=== PATIENT | male | born 1960 | race Caucasian/White ===

== ENCOUNTER 2019-05-22 00:32 | Emergency (ER) | payer MEDICAID ==
[~2019-05-22] VITALS: Ht 188 cm; Wt 87.5 kg
[~2019-05-22 00:32] MED LIST: ARIP1TAB7 PO; BUPR-81 PO; HYDR-3682 PO; PAR20T PO; QUET100T38 PO; TRAZ100T2 PO
[2019-05-22 02:05] LABS: Basophils # (auto) 0 uL; Eosinophils # (auto) 0.1 uL; Lymphocytes # (auto) 1.3 uL; Monocytes # (auto) 0.3 uL; Neutrophils # (auto) 2.2 uL
[2019-05-22 02:07] LABS: Basophils % (auto) 0.6 % (0.0-2.0); Eosinophils % (auto) 3.4 % (0.0-7.0); Hematocrit 37.1 % (41.0-53.0); Lymphocytes % (auto) 33.8 % (10.0-50.0); Mean Corpuscular Hemoglobin 23.9 pg (28.0-32.0); Mean Corpuscular Hgb Conc. 32.5 g/dL (32.0-36.0); Mean Corpuscular Volume 73.7 fL (80.0-100.0); Monocytes % (auto) 8.1 % (0.0-12.0); Neutrophils % (auto) 54.1 % (37.0-80.0); Nucleated Red Blood Cells % 0.1 %; Platelet Count (auto) 199 10^3/uL (140-450); Red Blood Cells 5.03 10^6/uL (4.5-5.90); Red Cell Distribution Width 16.9 % (11.8-14.3)
[2019-05-22 02:42] LABS: Albumin 3.6 g/dL (3.4-5.0); Calcium 7.9 mg/dL (8.5-10.1); Potassium 3.5 mmol/L (3.5-5.1)
[2019-05-22 02:43] LABS: Urine Bacteria FEW /hpf (None Seen); Urine Blood Negative /uL (Negative); Urine Mucus FEW (None Seen); Urine Specific Gravity 1.027 (1.001-1.035); Urine WBC 1 /hpf (0 - 3)
[2019-05-22 02:45] LABS: BUN/Creatinine Ratio 19.6
[2019-05-22 02:47] LABS: Salicylate < 1.7 mg/dL (2.8-20.0)
[2019-05-22 02:48] LABS: Acetaminophen < 2.0 ug/mL (10-30)
[2019-05-22 02:50] LABS: Bilirubin, Total 0.4 mg/dL (0.2-1.0); Total Protein 7.8 g/dL (6.4-8.2)
[2019-05-22 02:51] LABS: Alcohol, Urine < 3.0 mg/dL (0-5); Amphetamine Screen, Urine NEGATIVE (NEGATIVE); Barbiturate Scree,Urine NEGATIVE (NEGATIVE); Benzodiazephine Screen, Urine NEGATIVE (NEGATIVE); Cannabinoid Screen, Urine NEGATIVE (NEGATIVE); Cocaine Screen, Urine NEGATIVE (NEGATIVE); Opiate Scree,Urine NEGATIVE (NEGATIVE); Phencyclidine Screen, Urine NEGATIVE (NEGATIVE)
[2019-05-22] MEDS ORDERED: hydrOXYzine 25 MG TAB or CAP PO PRN (06:00)
[2019-05-22] MEDS ORDERED: ARIPIPRAZOLE 10 MG PO SCH (10:00)
[2019-05-22] MEDS ORDERED: buPROPion HCL 100 MG TAB PO SCH (10:00)
[2019-05-22 13:05] VITALS: BP 99/49
[2019-05-22] MEDS ORDERED: traZODone HCL 50 MG TAB PO SCH (22:00)
[2019-05-22] MEDS ORDERED: QUEtiapine FUMARATE 100 MG TAB PO SCH (22:00)
[2019-05-22] MEDS ORDERED: PARoxetine 20 MG TAB PO SCH (22:00)
== END 2019-05-22 11:36 | disposition still patient (30) ==
LOC: ER 00:40
DX: F32.9 Major depressive disorder, single episode, unspecified (principal); R45.851 Suicidal ideations; F41.9 Anxiety disorder, unspecified
CPT/HCPCS: 36415; 80053; 80307; 80329; 81001; 85025

== ENCOUNTER 2021-05-23 13:25 | Emergency (ER) | payer MEDICAID ==
[~2021-05-23] VITALS: Ht 188 cm; Wt 99.8 kg
[~2021-05-23 13:25] MED LIST changes: -BUPR-81 PO; +BUPR150T23 PO; -TRAZ100T2 PO; +TRAZ100T3 PO
[2021-05-23] MEDS ORDERED: ASPirin 81 mg TAB PO ONE (14:00)
[2021-05-23 14:40] LABS: Basophils # (auto) 0.1 10 ^3/uL (0-0.2); Basophils % (auto) 1.4 % (0.0-2.0); Eosinophils # (auto) 0.1 10 ^3/uL (0-0.8); Eosinophils % (auto) 1.6 % (0.0-7.0); Hematocrit 40.9 % (41.0-53.0); Lymphocytes # (auto) 1.3 10 ^3/uL (0.4-5.4); Lymphocytes % (auto) 30.9 % (10.0-50.0); Mean Corpuscular Hemoglobin 28.6 pg (28.0-32.0); Mean Corpuscular Hgb Conc. 34.1 g/dL (32.0-36.0); Mean Corpuscular Volume 83.8 fL (80.0-100.0); Monocytes # (auto) 0.6 10 ^3/uL (0-1.3); Monocytes % (auto) 13.2 % (0.0-12.0); Neutrophils # (auto) 2.2 10 ^3/uL (1.6-8.6); Neutrophils % (auto) 52.9 % (37.0-80.0); Nucleated Red Blood Cells % 0.2 %; Red Blood Cells 4.88 10^6/uL (4.5-5.90); Red Cell Distribution Width 17.2 % (11.8-14.3); White Blood Cell 4.2 10^3/uL (4.4-10.8)
[2021-05-23 15:00] LABS: Albumin 3.6 g/dL (3.4-5.0); Calcium 10.8 mg/dL (8.5-10.1); Magnesium 2.8 mg/dL (1.6-2.6); Potassium 3.3 mmol/L (3.5-5.1)
[2021-05-23 15:05] LABS: BUN/Creatinine Ratio 13.4; Bilirubin, Total 0.6 mg/dL (0.2-1.0); Total Protein 7.9 g/dL (6.4-8.2)
[2021-05-23 16:55] LABS: Urine Bacteria FEW /hpf (None Seen); Urine Blood Negative /uL (Negative); Urine Mucus FEW (None Seen); Urine Specific Gravity 1.014 (1.001-1.035); Urine WBC 1 /hpf (0 - 3)
[2021-05-23 18:05] VITALS: BP 124/60
== END 2021-05-23 16:59 | disposition home or self-care (01) ==
LOC: ER 13:25
DX: R07.89 Other chest pain (principal); E78.5 Hyperlipidemia, unspecified; Z86.2 Personal history of diseases of the blood and blood-forming organs and certain disorders involving the immune mechanism; Z86.73 Personal history of transient ischemic attack (TIA), and cerebral infarction without residual deficits; Z79.899 Other long term (current) drug therapy
CPT/HCPCS: 36415; 71045; 80053; 81001; 83735; 84484; 85025; 93005